=== PATIENT | female | born 1950 | race Caucasian/White ===

== ENCOUNTER → 2018-09-26 | Outpatient (CLI) | payer MEDICARE ==
--- NOTE | 2018-09-27 10:29 | MM ---
Reason for exam: screening (asymptomatic). Last mammogram was performed 1 year ago. History: Patient is postmenopausal and had first child at age 33. Benign excisional biopsy of the left breast, April 23, 2005. Stereotactic core biopsy of the left breast, April 15, 2005. Retro-pectoral silicone gel implants in both breasts, 1988. Took hormonal contraceptives for 6 years beginning at age 22. Physical Findings: A clinical breast exam by your physician is recommended on an annual basis and results should be correlated with mammographic findings. MG 3D Screen Mammo Imp/Cad Bilateral CC, MLO, and ID view(s) were taken. Prior study comparison: September 23, 2017, bilateral MG screening mammo implant/CAD. September 16, 2016, bilateral MG screening mammo implant/CAD. The breast tissue is heterogeneously dense. This may lower the sensitivity of mammography. Asymmetric breast tissue left subareolar, stable. There is no discrete abnormality. Bilateral subpectoral implant redemonstrated. ASSESSMENT: Benign, BI-RAD 2 RECOMMENDATION: Routine screening mammogram of both breasts in 1 year.
== END ==
LOC: RADMAMWWP 08:39
PROVIDERS: ATTEND Obstetrics & Gynecology
DX: Z12.31 Encounter for screening mammogram for malignant neoplasm of breast (principal); Z13.220 Encounter for screening for lipoid disorders; Z13.29 Encounter for screening for other suspected endocrine disorder
CPT/HCPCS: 77063; 77067; 80061; 82947; 84439; 84443; 84479

== ENCOUNTER → 2019-09-27 | Outpatient (CLI) | payer MEDICARE ==
[2019-09-27 09:44] LABS: HCT 46.6 % (34.0-46.0); MCHC 32.2 g/dL (31.0-37.0); MCV 99.5 fL (80.0-100.0); Mean Platelet Volume 6.9; Platelet Count 316 k/uL (150-450); RBC 4.68 m/uL (3.80-5.40); RDW 11.4 % (11.5-15.5); WBC 5.8 k/uL (3.8-10.6)
[2019-09-27 17:35] LABS: African American GFR (CKD) 77.2 (60.0-200.0); Albumin 4.5 g/dL (3.80-4.90); Albumin/Globulin Ratio 1.8 (1.60-3.17); Anion Gap 12.5 mmol/L (4.00-12.00); Calcium 9.4 mg/dL (8.7-10.3); Carbon Dioxide 23.5 mmol/L (21.6-31.8); Chol/HDL Ratio 2.37; Globulin 2.5 g/dL (1.6-3.3); LDL Cholesterol,Calculated 121.6 mg/dL (0.0-131.0); Total Bilirubin 0.8 mg/dL (0.2-1.2); VLDL Calculation 14.4 mg/dL (5.00-40.00)
[2019-09-27 17:44] LABS: T4, Free (Free Thyroxine) 0.9 ng/dL (0.80-1.80)
== END | disposition home or self-care (01) ==
LOC: LABWHC1 08:45
PROVIDERS: ATTEND Family Medicine
DX: E78.00 Pure hypercholesterolemia, unspecified (principal); F45.8 Other somatoform disorders; Z13.220 Encounter for screening for lipoid disorders
CPT/HCPCS: 36415; 80053; 80061; 84439; 84443; 85027; 86803

== ENCOUNTER → 2019-09-27 | Outpatient (CLI) | payer MEDICARE ==
--- NOTE | 2019-09-27 09:36 | BD ---
EXAMINATION TYPE: Axial Bone Density DATE OF EXAM: 09/27/2019 COMPARISON: 09.16.2016 CLINICAL HISTORY: M [age] Height: 65.5 Weight: 131.6 FRAX RISK QUESTIONS: Alcohol (3 or more units per day): no Family History (Parent hip fracture): yes-mother Glucocorticoids (More than 3mos): no (Ex: prednisone, prednisolone, methylprednisolone, dexamethasone, and hydrocortisone). History of Fracture in Adulthood: no Secondary Osteoporosis: 1. Type 1 Diabetes: no 2. Hyperthyroidism: no 3. Menopause before 45: no 4. Malnutrition: no 5. Chronic liver disease: no Rheumatoid Arthritis: no Current Tobacco Use: no RISK FACTORS HISTORY OF: Family History of Osteoporosis: no Active: yes Diet low in dairy products/other sources of calcium: no Postmenopausal woman: age 57 Lost more than 2 inches in height since high school: no MEDICATIONS: lorazepam Additional History: EXAM MEASUREMENTS: Bone mineral densitometry was performed using the [employer] System. Bone mineral density as measured about the Lumbar spine is: ----- L1-L4(G/cm2): 1.295 T Score Values are as follows: ----- L2: 0.9 ----- L3: 1.4 ----- L4: 1.2 ----- L1-L4: 1.0 Bone mineral density has: increased 1.0 % since study of: 09.16.2016 Bone mineral density about the R hip (g/cm2): 0.881 Bone mineral density about the L hip (g/cm2): 0.860 T Score values are as follows: -----R Neck: -1.1 -----L Neck: -1.3 -----R Total: -0.4 -----L Total: -0.3 Bone mineral density has: decreased -0.2 % since study of: 09.16.2016 IMPRESSION: Osteopenia (T Score between -2.5 and -1). There is slightly increased risk of fracture and the patient may be considered for treatment. Re-Screen 2-5 years. NOTE: T-SCORE=SD OF THE YOUNG ADULT MEAN.
--- NOTE | 2019-09-27 13:35 | MM ---
Reason for exam: screening (asymptomatic). Last mammogram was performed 1 year ago. History: Patient is postmenopausal and had first child at age 33. Benign excisional biopsy of the left breast, April 23, 2005. Stereotactic core biopsy of the left breast, April 15, 2005. Retro-pectoral silicone gel implants in both breasts, 1988. Took hormonal contraceptives for 6 years beginning at age 22. Physical Findings: A clinical breast exam by your physician is recommended on an annual basis and results should be correlated with mammographic findings. MG 3D Screen Mammo Imp/Cad Bilateral CC, MLO, and ID view(s) were taken. Prior study comparison: September 26, 2018, bilateral MG 3d screen mammo imp/cad. September 23, 2017, bilateral MG screening mammo implant/CAD. There are scattered fibroglandular densities. No suspicious abnormality. Bilateral calcified retropectoral silicone implants. Post excisional biopsy change on the left. No significant changes when compared with prior studies. ASSESSMENT: Benign, BI-RAD 2 RECOMMENDATION: Routine screening mammogram of both breasts in 1 year.
== END | disposition home or self-care (01) ==
LOC: RADBDWWP 09:02
PROVIDERS: ATTEND Obstetrics & Gynecology
DX: Z12.31 Encounter for screening mammogram for malignant neoplasm of breast (principal); M85.80 Other specified disorders of bone density and structure, unspecified site
CPT/HCPCS: 77063; 77067; 77080

== ENCOUNTER → 2019-11-09 | Outpatient (CLI) | payer MEDICARE ==
--- NOTE | 2019-11-09 09:11 | FL ---
EXAMINATION TYPE: FL UGI DATE OF EXAM: 11/09/2019 COMPARISON: NONE HISTORY: Nausea, other somatoform disorders, dysphagia. TECHNIQUE: A double contrast UGI study is performed. 2 minutes and 20 seconds of fluoroscopy time wa s utilized with 52 fluoroscopic images saved. FINDINGS: The mid and distal esophagus shows normal motility and emptying into the stomach on initial swallow, however there is delayed clearance and narrowing at the gastroesophageal junction (bird's beak appear ance) with subsequent proximal tertiary contractions and moderate intraesophageal reflux. The gastroe sophageal junction appears very mildly narrowed on subsequent swallows without delay of contrast spil jose j into the stomach. No evidence of hiatal hernia or stricture noted. The stomach shows normal distensibility, peristalsis, and mucosal folds. No evidence of any mass or ulcer disease. No significant gastroesophageal reflux was seen during real time performance of this study. The duodenal bulb, sweep, and proximal small bowel loops are unremarkable. IMPRESSION: Single episode of delayed clearance of barium from the distal esophagus into the stomach with narrowing of the distal esophagus displaying a bird's beak appearance on few images. Considerati ons are for intermittent esophageal spasm given inconsistency, achalasia, or mild incomplete strictur e. Further evaluation with esophagram is recommended. This single episode does result in abnormal ter tiary contractions and moderate intraesophageal reflux.
== END | disposition home or self-care (01) ==
LOC: RADUSWWP 07:58
PROVIDERS: ATTEND Family Medicine
DX: K21.9 Gastro-esophageal reflux disease without esophagitis (principal); R93.3 Abnormal findings on diagnostic imaging of other parts of digestive tract
CPT/HCPCS: 74240

== ENCOUNTER → 2019-11-16 | Outpatient (CLI) | payer MEDICARE ==
--- NOTE | 2019-11-16 15:03 | US ---
EXAMINATION TYPE: US thyroid st tissue head/neck DATE OF EXAM: 11/16/2019 COMPARISON: NONE CLINICAL HISTORY: F45.8 other somatoform disorders. Trouble swallowing. GLAND SIZE: Right Lobe: 4.1 x 1.0 x 1.0 cm Overall Parenchyma: homogenous Left Lobe: 3.9 x 1.1 x1.4 cm Overall Parenchyma: homogeneous Isthmus Thickness: .3 cm NODULES RIGHT: # of nodules measured on right: 0 LEFT: # of nodules measured on left: 0 ISTHMUS: # of nodules measured in the isthmus: 0 Bilateral neck scanned, no evidence of lymphadenopathy. Thyroid echotexture is homogenous and symmetric IMPRESSION: No significant abnormality.
== END | disposition home or self-care (01) ==
LOC: RADUSWWP 13:47
PROVIDERS: ATTEND Family Medicine
DX: F45.8 Other somatoform disorders (principal)
CPT/HCPCS: 76536

== ENCOUNTER → 2020-12-19 | Outpatient (CLI) | payer MEDICARE ==
--- NOTE | 2020-12-20 15:04 | MM ---
Reason for exam: screening (asymptomatic). Last mammogram was performed 1 year and 3 months ago. History: Patient is postmenopausal and had first child at age 33. Benign excisional biopsy of the left breast, April 23, 2005. Stereotactic core biopsy of the left breast, April 15, 2005. Retro-pectoral silicone gel implants in both breasts, 1988. Took hormonal contraceptives for 6 years beginning at age 22. Physical Findings: A clinical breast exam by your physician is recommended on an annual basis and results should be correlated with mammographic findings. MG 3D Screen Mammo Imp/Cad Bilateral CC, MLO, and ID view(s) were taken. Prior study comparison: September 27, 2019, bilateral MG 3d screen mammo imp/cad. September 26, 2018, bilateral MG 3d screen mammo imp/cad. The breast tissue is heterogeneously dense. This may lower the sensitivity of mammography. Finding #1: There is stable architectural distortion in the left breast consistent with known excision biopsy. Finding #2: There are typically benign dystrophic, round calcifications in the right breast. There is no discrete abnormality. Bilateral subpectoral implants redemonstrated. ASSESSMENT: Benign, BI-RAD 2 RECOMMENDATION: Routine screening mammogram of both breasts in 1 year.
== END | disposition home or self-care (01) ==
LOC: RADMAMWWP 12:26
PROVIDERS: ATTEND Obstetrics & Gynecology
DX: Z12.31 Encounter for screening mammogram for malignant neoplasm of breast (principal); Z98.82 Breast implant status
CPT/HCPCS: 77063; 77067

== ENCOUNTER → 2022-01-09 | Outpatient (CLI) | payer MEDICARE ==
--- NOTE | 2022-01-13 08:58 | MM ---
Reason for exam: screening (asymptomatic). Last mammogram was performed 1 year and 1 month ago. History: Patient is postmenopausal and had first child at age 33. Benign excisional biopsy of the left breast, April 23, 2005. Stereotactic core biopsy of the left breast, April 15, 2005. Retro-pectoral silicone gel implants in both breasts, 1988. Took hormonal contraceptives for 6 years beginning at age 22. Physical Findings: A clinical breast exam by your physician is recommended on an annual basis and results should be correlated with mammographic findings. MG 3D Screen Mammo Imp/Cad Bilateral CC, MLO, and ID view(s) were taken. Prior study comparison: December 19, 2020, bilateral MG 3d screen mammo imp/cad. September 27, 2019, bilateral MG 3d screen mammo imp/cad. There are scattered fibroglandular densities. Bilateral breast implant. No significant changes when compared with prior studies. ASSESSMENT: Benign, BI-RAD 2 RECOMMENDATION: Routine screening mammogram of both breasts in 1 year.
== END | disposition home or self-care (01) ==
LOC: RADMAMWWP 10:32
PROVIDERS: ATTEND Obstetrics & Gynecology
DX: Z12.31 Encounter for screening mammogram for malignant neoplasm of breast (principal); Z78.0 Asymptomatic menopausal state
CPT/HCPCS: 77063; 77067

== ENCOUNTER → 2024-01-18 | Outpatient (CLI) | payer MEDICARE ==
--- NOTE | 2024-01-20 15:14 | MM ---
Reason for Exam: Screening (asymptomatic). Last screening mammogram was performed 12 month(s) ago. Patient History: Menarche at age 18. First Full-Term at age 33. Late child-bearing (after 30). Postmenopausal. Hormonal Contraceptives, starting at age 22 for 6 years. 04/23/2005, Benign Excisional Biopsy on the left side. 04/15/2005, Stereotactic Core Biopsy on the Left side. 1988, Bilateral Implants. Risk Values: Trupti 5 year model risk: 3.3%. NCI Lifetime model risk: 8.9%. Prior Study Comparison: 12/19/2020 Bilateral Screening Mammogram, [facility]. 01/09/2022 Bilateral Screening Mammogram, [facility]. 01/11/2023 Bilateral MG 3D screen mammo imp/cad., [facility]. Tissue Density: There are scattered fibroglandular densities. Findings: Analyzed By CAD. Bilateral breast implants appear intact. There is no suspicious group of microcalcifications or new suspicious mass. Overall Assessment: Negative, BI-RAD 1 Management: Screening Mammogram of both breasts in [address] [facility] will attempt to contact patient to return for supplemental views and ultrasound if indicated. Patient should continue monthly self-breast exams. A clinical breast exam by your physician is recommended on an annual basis. This exam should not preclude additional follow-up of suspicious palpable abnormalities. Note on Trupti scores and lifetime risk: 1. A Trupti score greater than 3% is considered moderate risk. If this is the case, consider specialist referral to assess eligibility for a risk reducing agent. 2. If overall lifetime risk for the development of breast cancer is 20% or higher, the patient may qualify for future screening with alternating mammogram and breast MRI. Electronically signed and approved by: Yoav Trejo DO
== END | disposition home or self-care (01) ==
LOC: RADMAMWWP 09:45
PROVIDERS: ATTEND Obstetrics & Gynecology
DX: Z12.31 Encounter for screening mammogram for malignant neoplasm of breast (principal); Z78.0 Asymptomatic menopausal state
CPT/HCPCS: 77063; 77067

== ENCOUNTER → 2025-03-14 | Outpatient (CLI) | payer MEDICARE ==
--- NOTE | 2025-03-14 14:37 | BD ---
EXAMINATION TYPE: Axial Bone Density DATE OF EXAM: 03/14/2025 CLINICAL HISTORY: 74 years old Female. ICD-10 CODE: M85.9 DISORDER OF BONE , Additional History: Height: 65.5 in Weight: 118 lbs FRAX RISK QUESTIONS: Family History (Parent hip fracture): mother EXAM MEASUREMENTS: Bone mineral densitometry was performed using the [employer] System. Bone mineral density as measured about the Lumbar spine is: ----- L1-L4(G/cm2): 1.305 T Score Values are as follows: ----- L1: 0.1 ----- L2: 0.8 ----- L3: 1.4 ----- L4: 1.5 ----- L1-L4: 1.0 Z Score Values are as follows: ----- L1: 2.2 ----- L2: 2.9 ----- L3: 3.5 ----- L4: 3.6 ----- L1-L4: 3.1 Bone mineral density has: Increased 0.1% since study of: 01/11/2023 Bone mineral density about the R hip (g/cm2): 0.947 Bone mineral density about the L hip (g/cm2): 0.972 T Score values are as follows: -----R Neck: -1.2 -----L Neck: -1.3 -----R Total: -0.5 -----L Total: -0.3 Z Score values are as follows: -----R Neck: 0.8 -----L Neck: 0.7 -----R Total: 1.4 -----L Total: 1.6 Bone mineral density has: Decreased -0.9% since study of: 01/11/2023 FRAX%s: The graph provided illustrates a 13.3% chance for a major osteoporotic fx and a 4.1% chance f or the hips probability for fx in 10 years time. IMPRESSION: Normal (Values between +1 and -1 indicate normal bone mass). Consider repeating this study in 5 year s or sooner if there is some new clinical indication. NOTE: T-SCORE=SD OF THE YOUNG ADULT MEAN. [facility], , 03/14/2025 2:34 PM
--- NOTE | 2025-03-14 14:56 | MM ---
Reason for Exam: Screening (asymptomatic). Last mammogram was performed 1 year(s) and 2 month(s) ago. Patient History: Menarche at age 18. First Full-Term at age 33. Late child-bearing (after 30). Postmenopausal. Hormonal Contraceptives, starting at age 22 for 6 years. 04/23/2005, Benign Excisional Biopsy on the left side. 04/15/2005, Stereotactic Core Biopsy on the Left side. 1988, Bilateral Implants. Risk Values: Trupti 5 year model risk: 3.3%. NCI Lifetime model risk: 8.5%. Prior Study Comparison: 01/09/2022 Bilateral Screening Mammogram, [facility]. 01/11/2023 Bilateral MG 3D screen mammo imp/cad., [facility]. 01/18/2024 Bilateral MG 3D screen mammo imp/cad., [facility]. Tissue Density: The breasts are heterogeneously dense, which may obscure small masses. Findings: Analyzed By CAD. There is no suspicious group of microcalcifications or new suspicious mass in either breast. Overall Assessment: Benign, BI-RAD 2 Management: Screening Mammogram of both breasts in 1 year. . Patient should continue monthly self-breast exams. A clinical breast exam by your physician is recommended on an annual basis. This exam should not preclude additional follow-up of suspicious palpable abnormalities. Note on Trupti scores and lifetime risk: 1. A Trupti score greater than 3% is considered moderate risk. If this is the case, consider specialist referral to assess eligibility for a risk reducing agent. 2. If overall lifetime risk for the development of breast cancer is 20% or higher, the patient may qualify for future screening with alternating mammogram and breast MRI. [facility], , 03/14/2025 10:08 AM. Electronically signed and approved by: Freeman Harris M.D. Radiologis
== END | disposition home or self-care (01) ==
LOC: RADMAMWWP 09:07
PROVIDERS: ATTEND Family Medicine
DX: Z12.31 Encounter for screening mammogram for malignant neoplasm of breast (principal); R92.333 Mammographic heterogeneous density, bilateral breasts; M85.89 Other specified disorders of bone density and structure, multiple sites; Z78.0 Asymptomatic menopausal state; Z92.0 Personal history of contraception
CPT/HCPCS: 77063; 77067; 77080